=== PATIENT | female | born 1945 | race Caucasian/White ===

== ENCOUNTER 2020-09-18 05:46 | Inpatient (IN) | payer MEDICARE ==
[~2020-09-18] VITALS: Ht 157.5 cm; Wt 71.7 kg
--- NOTE | 2020-09-18 06:03 | NUR ---
RADHA 90 FROM HOME FOR C/O ABD PAIN. PT ARRIVED ON NRB MASK. WAS ASSISTED TO BED 8 ER AND WAS PLACED ON A MONITOR . A, OX4. REPORTED HAVING ABD PAIN, BLOODY STOOL AND VOMITING BLOOD FOR THE PAST FEW DAYS WHICH ALL GOT WORSE RECENTLY. PT HAS REC'F 50MCG OF F[place] IV PRINTER MACHINE BY EMS. PT WAS PLACED ON O2 AT 2LPM VIA NC. TOLERATED WELL. SATTING AT 99%. ON ONGOING MONITORING WHILE AWAITING FOR MD'S EVAL.
[2020-09-18 06:31] LABS: BASOPHILS # (AUTO) 0.1 K/uL (0.0-0.2); BASOPHILS % (AUTO) 0.3 % (0.0-2.0); EOSINOPHILS % (AUTO) 0.1 % (0.0-6.0); LYMPHOCYTES # (AUTO) 2.4 K/uL (0.8-4.8); LYMPHOCYTES % (AUTO) 7.9 % (20.0-44.0); MEAN CORPUSCULAR HGB CONC 32 g/dl (31.0-36.0); MEAN CORPUSCULAR VOLUME 112 fL (82-100); MONOCYTES # (AUTO) 2.5 K/uL (0.1-1.30); MONOCYTES % (AUTO) 8.3 % (2.0-12.0); NEUTROPHILS # (AUTO) 25.7 K/uL (1.8-8.9); NEUTROPHILS % (AUTO) 83.4 % (43.0-81.0); PLATELET COUNT (AUTO) 340 K/uL (150-450)
[2020-09-18 06:39] LABS: RED BLOOD CELL COUNT(AUTO) 1.54 MIL/uL (4.0-5.2)
[2020-09-18] MEDS ORDERED: MORPHINE SULFATE INJ 4 MG/ML DISP.SYRIN ONE (06:43)
[2020-09-18] MEDS ORDERED: FAMOTIDINE/PF INJ 20 MG/2 ML VIAL IV ONE ×2 (06:43→07:00)
[2020-09-18] MEDS ORDERED: ONDANSETRON HCL/PF 4 MG/2 ML VIAL ONE (06:43)
[2020-09-18] MEDS ORDERED: PANTOPRAZOLE 40 MG VIAL ONE ×4 (06:43→17:17)
--- NOTE | 2020-09-18 06:43 | NUR ---
wbc 30.7 hgb 5.6 hct 17
[2020-09-18 06:44] LABS: HEMATOCRIT 17 % (33-45); HEMOGLOBIN 5.6 g/dL (11.5-14.8); WHITE BLOOD COUNT (AUTO) 30.7 K/uL (4.3-11.0)
[2020-09-18] MEDS ORDERED: CEFTRIAXONE 1GM BAG (ER ONLY) 50 ML IV ONE ×2 (06:44→07:00)
--- NOTE | 2020-09-18 06:47 | NUR ---
KRISS WINTERS SPOKE TO DR. NEWMAN REGARDING PT.
[2020-09-18] MEDS ORDERED: PANTOPRAZOLE 40 MG VIAL IV ONE (07:00)
[2020-09-18] MEDS ORDERED: PANTOPRAZOLE 80 MG in IV NS 0.9% 500 ML IV PRN (07:00)
[2020-09-18] MEDS ORDERED: IV NS 0.9% 1,000 ML BAG IV ONE (07:00)
[2020-09-18] MEDS ORDERED: MORPHINE SULFATE INJ 2 MG/ML DISP.SYRIN IV ONE (07:00)
[2020-09-18] MEDS ORDERED: ONDANSETRON HCL/PF 4 MG/2 ML VIAL IV ONE (07:00)
[2020-09-18] MEDS ORDERED: LISI10TA29 PO (08:25)
--- NOTE | 2020-09-18 08:35 | NUR ---
GUILLERMO (SCHEDULING CLERK FROM [facility]) [phone] FAX [phone]
[2020-09-18 08:48] LABS: ALANINE AMINOTRANSFERASE 88 U/L (12-78); ALBUMIN 2.5 g/dL (3.4-5.0); ALKALINE PHOSPHATASE 77 U/L (46-116); ASPARTATE AMINOTRANSFERASE 54 U/L (15-37); BILIRUBIN,DIRECT 0.4 mg/dL (0.0-0.2); BILIRUBIN,TOTAL 0.7 mg/dL (0.2-1.0); CALCIUM, SERUM 8.5 mg/dL (8.5-10.1); CARBON DIOXIDE 19 mmol/L (21-32); CHLORIDE 105 mmol/L (98-107); CREATININE 1.9 mg/dL (0.6-1.3); GLUCOSE 154 mg/dL (74-106); LIPASE 314 U/L (73-393); POTASSIUM 5.4 mmol/L (3.5-5.1); SODIUM SERUM 138 mmol/L (136-145); TOTAL PROTEIN, SERUM 5.5 g/dL (6.4-8.2); UREA NITROGEN, BLOOD 67 mg/dL (7-18)
--- NOTE | 2020-09-18 09:05 | NUR ---
PER GUILLERMO FROM [facility] THE PATIENT IS OK TO STAY IN SO UNDER DR MEDINA
--- NOTE | 2020-09-18 09:10 | NUR ---
DR MEDINA FOR ADMISSION, DR NEWMAN CALLED AGAIN AND REMINDED BY DR VALENTIN TO SEE PATIENT
--- NOTE | 2020-09-18 09:16 | NUR ---
WAITING ON ANAND BED
[2020-09-18] MEDS ORDERED: ACETAMINOPHEN 325 MG TABLET ONE (09:42)
--- NOTE | 2020-09-18 09:50 | NUR ---
TYLENOL 650 MG PO GIVEN PRIOR START OF THE BLOOD TRANSFUSION FOR TEMP OF 99.8. THE ORDER OFTYLENOL 650 MG PO ONCE RECEIVED FROM DR VALENTIN, THE ORDER IS READ BACK, VERIFIED. NOTED AND CARRIED OUT.
--- NOTE | 2020-09-18 09:56 | NUR ---
BLOOD TRANSFUSION GOING. NO SIDE EFFECTS NOTED AT THIS TIME.
[2020-09-18] MEDS ORDERED: ACETAMINOPHEN 325 MG TABLET PO ONE (10:00)
[2020-09-18] MEDS ORDERED: AZITHROMYCIN 500 MG in IV D5W 250 ML IV ONE (10:00)
[2020-09-18 10:15] LABS: BAND % (MANUAL) 1 % (0.0-5.0); LYMPHOCYTES % (MANUAL) 7 % (16-48); METAMYELOCYTES % 1 % (0-0); MONOCYTES % (MANUAL) 9 % (0-11.0); MYELOCYTES % 1 % (0-0); NEUTROPHILS % (MANUAL) 81 (42-76)
[2020-09-18] MEDS ORDERED: ONDANSETRON HCL/PF 4 MG/2 ML VIAL IV PRN (11:30)
[2020-09-18] MEDS: PANTOPRAZOLE 40 MG VIAL IV SCH ×3 (11:30→17:30)
--- NOTE | 2020-09-18 12:02 | NUR ---
THE PATIENT IS TAKEN TO CT IN STABLE CONDITION.
--- NOTE | 2020-09-18 12:07 | NUR ---
SEEN BY DR MEDINA WITH AN ORDER TO ADMINISTER TOTAL OF 4 UNITS OF PRBC AND PATIENT OK TO HAVE ICE CHIPS.
--- NOTE | 2020-09-18 12:08 | NUR ---
THE PATIENT IS BACK FROM CT IN STABLE CONDITION.
[2020-09-18 12:35] LABS: HEMOGLOBIN 7.2 g/dL (11.5-14.8)
--- NOTE | 2020-09-18 13:44 | NUR ---
TEMP 99.8 DR JOSUE AWARE AND PER OK TO START THE BLOOD TRANSFUSION.
[2020-09-18] MEDS: PIPERACILLIN /TAZOBACTAM 2.25 G in IV D5W 50 ML IV SCH ×2 (13:47→18:24)
--- NOTE | 2020-09-18 14:26 | NUR ---
PROTONIX 80 MG IV INFUSING IS STOPED PER DR MEDINA.
[2020-09-18 18:21] LABS: HEMOGLOBIN 8.6 g/dL (11.5-14.8)
--- NOTE | 2020-09-18 18:45 | NUR ---
3RD UNIT OF PRBC INFUSING. NO SIDE EFFECTS NOTED.
--- NOTE | 2020-09-18 20:00 | NUR ---
TELE 111-1
--- NOTE | 2020-09-18 20:01 | NUR ---
3RD PRBC FINISHED.
--- NOTE | 2020-09-18 20:05 | NUR ---
RN NOTES RECEIVED ER ADMISSION REPORT FROM TOMY QUEZADA. ALL PERTINENT ADMISSION INFO REGARDING PT NOTED. WILL WAIT FOR PT TO BE TRANSFERRED TO UNIT AND ADDRESS NEEDS ACCORDINGLY. UNMANNED AIRCRAFT SYSTEMS ROBOTICIST MADE AWARE.
--- NOTE | 2020-09-18 20:09 | NUR ---
REPORT GIVEN TO TONA HUITRON FOR MAG.
--- NOTE | 2020-09-18 20:33 | NUR ---
TAKEN TO ASSIGNED ROOM FOR MAG VIA ACLS PROTOCOLS
[2020-09-18 22:39] VITALS: BP 144/67
[2020-09-18 23:00] VITALS: BP_SYST 105; BP_SYST 115; BP_DIAS 43; BP_DIAS 62
[2020-09-18] MEDS: MORPHINE SULFATE INJ 2 MG/ML DISP.SYRIN IV PRN (23:00)
[2020-09-18] MEDS: IV 1/2NS 1000 ML 1,000 ML IV PRN (23:06)
[2020-09-18 23:59] VITALS: BP 100/55
[2020-09-19] VITALS (7 sets, daily range): BP systolic 100–140; BP diastolic 55–71
[2020-09-19] MEDS ORDERED: PIPERACILLIN /TAZOBACTAM 2.25 G VIAL IV ONE ×2 (01:30→05:22)
[2020-09-19 03:53] LABS: BASOPHILS # (AUTO) 0.1 K/uL (0.0-0.2); BASOPHILS % (AUTO) 0.3 % (0.0-2.0); EOSINOPHILS % (AUTO) 0.2 % (0.0-6.0); HEMATOCRIT 36 % (33-45); HEMOGLOBIN 11.7 g/dL (11.5-14.8); LYMPHOCYTES # (AUTO) 1.7 K/uL (0.8-4.8); LYMPHOCYTES % (AUTO) 6.8 % (20.0-44.0); MEAN CORPUSCULAR HGB CONC 33 g/dl (31.0-36.0); MEAN CORPUSCULAR VOLUME 94 fL (82-100); MONOCYTES # (AUTO) 0.8 K/uL (0.1-1.30); MONOCYTES % (AUTO) 3.1 % (2.0-12.0); NEUTROPHILS # (AUTO) 22.1 K/uL (1.8-8.9); NEUTROPHILS % (AUTO) 89.6 % (43.0-81.0); PLATELET COUNT (AUTO) 209 K/uL (150-450); WHITE BLOOD COUNT (AUTO) 24.7 K/uL (4.3-11.0)
[2020-09-19 04:10] LABS: ALANINE AMINOTRANSFERASE 63 U/L (12-78); ALBUMIN 2.1 g/dL (3.4-5.0); ALKALINE PHOSPHATASE 69 U/L (46-116); ASPARTATE AMINOTRANSFERASE 37 U/L (15-37); BILIRUBIN,TOTAL 1.4 mg/dL (0.2-1.0); CALCIUM, SERUM 7.6 mg/dL (8.5-10.1); CARBON DIOXIDE 20 mmol/L (21-32); CHLORIDE 109 mmol/L (98-107); CREATININE 1.6 mg/dL (0.6-1.3); GLUCOSE 138 mg/dL (74-106); POTASSIUM 4.7 mmol/L (3.5-5.1); SODIUM SERUM 141 mmol/L (136-145); TOTAL PROTEIN, SERUM 5.1 g/dL (6.4-8.2); UREA NITROGEN, BLOOD 56 mg/dL (7-18)
[2020-09-19 04:33] LABS: BAND % (MANUAL) 29 % (0.0-5.0); BASOPHILS % (MANUAL) 0 % (0.0-2.0); EOSINOPHILS % (MANUAL) 0 % (0-4); LYMPHOCYTES % (MANUAL) 6 % (16-48); MONOCYTES % (MANUAL) 3 % (0-11.0); NEUTROPHILS % (MANUAL) 62 (42-76)
[2020-09-19] MEDS: PIPERACILLIN /TAZOBACTAM 2.25 G in IV D5W 50 ML IV SCH ×5 (06:09→23:44)
[2020-09-19] MEDS: MORPHINE SULFATE INJ 2 MG/ML DISP.SYRIN IV PRN ×2 (06:10→12:54)
--- NOTE | 2020-09-19 06:15 | NUR ---
RN notes Admitted an 78 year old female from ER via stretcher in stable condition with diagnosis of GI bleed. No distress or shortness of breath. Breathing even and unlabored. On room air well tolerated. Complaint of abdominal pain 8/10, administered morphine 2mg x 2, with relief. Alert and oriented. Able to communicate needs verbally. Kept clean and dry. Will endorse to next shift for continuity of care.
--- NOTE | 2020-09-19 07:15 | NUR ---
RN OPENING NOTE Received patient awake in bed appears calm and relaxed. No signs of distress. On room air tolerating well. Patient is AO x4 tele reading SR. Patient is npo, Has LAC #20 and LFA #20 running 1/2 NS @ 100ml/hr Safety measures maintained. Call light within reach. Will cont to monitor.
[2020-09-19] MEDS: PANTOPRAZOLE 40 MG VIAL IV SCH ×2 (08:44→16:19)
--- NOTE | 2020-09-19 09:15 | NUR ---
RN NOTE Received report from TOMY Andrade.
--- NOTE | 2020-09-19 10:00 | NUR ---
RN NOTE Patient was brought via bed. A/O X4. on room air, no sob noted. in no apparent distress. iv access on L FA #20, 1/2 NS running @100 ml/hr, intact and patent. patient is currently on npo status. Safety measures maintained. Bed in lowest position, brakes locked. Side rails up x2. Call light within reach. Will continue plan of care.
--- NOTE | 2020-09-19 10:40 | NUR ---
Patient transferred to room 309 gave report to Darion.
[2020-09-19] MEDS: IV 1/2NS 1000 ML 1,000 ML IV PRN (11:19)
[2020-09-19 11:45] LABS: HEMOGLOBIN 11.6 g/dL (11.5-14.8)
[2020-09-19] MEDS ORDERED: ANESTHESIA TRAY IN PYXIS 1 EA TRAY MC ONE (14:53)
--- NOTE | 2020-09-19 15:10 | NUR ---
RN NOTE Patient was brought down to Sx for the planned EGD.
--- NOTE | 2020-09-19 16:30 | NUR ---
RN NOTE DR. NEWMAN ORDERED REGULAR DIET FOR THE PT. ORDER CARRIED OUT.
--- NOTE | 2020-09-19 16:49 | NUR ---
RN NOTE DR. MEDINA PUT AN ORDER FOR MRCP WITHOUT CONTRAST. PUT THE PT ON NPO POST MIDNIGHT. HEALTH TEACHING GIVEN. PT VERBALIZED UNDERSTANDING.
--- NOTE | 2020-09-19 17:09 | NUR ---
RN NOTE DR MEDINA CHANGED HIS ORDER TO NPO EXCEPT MEDS. ORDER CARRIED OUT.
--- NOTE | 2020-09-19 18:08 | NUR ---
RN NOTE Patient resting quietly. A/O X4. on room air, no sob noted. in no apparent distress. iv access on L FA #20, L AC #20 with 1/2 NS running @100 ml/hr, intact and patent. all needs have been met attended. Consent for the MRCP, signed by the patient. Safety measures maintained. Bed in lowest position, brakes locked. Side rails up x2. Kept call light within reach. Will endorse continuity of care to oncoming shift.
[2020-09-19 19:00] LABS: HEMOGLOBIN 11.2 g/dL (11.5-14.8)
--- NOTE | 2020-09-19 19:42 | NUR ---
HAND SHOE CUTTER OPENING NOTE RECEIVED PT AWAKE IN BED. A/O X4. PT STABLE ON ROOM AIR. NO SOB OR S/S OF RESPIRATORY DISTRESS NOTED. PT ON EXTERNAL COAL DUMPING EQUIPMENT OPERATOR READING ST AT 115 BPM. PT HAS NO C/O PAIN OR DISCOMFORT AT THIS TIME. IV ACCESS IN LEFT FA #20, INFUSING 1/2 NS AT 100 ML/HR, INTACT AND PATENT. SAFETY MEASURES MAINTAINED. BED IN LOWEST LOCKED POSITION, HOB ELEVATED, SIDE RAILS UP X2. CALL LIGHT AND TABLE WITHIN REACH. WILL CONTINUE WITH PLAN OF CARE.
[2020-09-20 02:09] LABS: HEMOGLOBIN 10.1 g/dL (11.5-14.8)
[2020-09-20] MEDS: MORPHINE SULFATE INJ 2 MG/ML DISP.SYRIN IV PRN ×4 (04:55→20:13)
--- NOTE | 2020-09-20 04:55 | NUR ---
RN PAIN PT C/O SHARP LOWER ABDOMINAL PAIN, RATED 10/10 ON PAIN SCALE. VSS. PER PT REQUEST, ADMINISTERED MORPHINE SULFATE 2 MG IV Q4H PRN FOR PAIN. WILL REASSESS PT IN 30 MINS.
[2020-09-20] MEDS: PIPERACILLIN /TAZOBACTAM 2.25 G in IV D5W 50 ML IV SCH (05:01)
[2020-09-20 06:06] LABS: EOSINOPHILS % (AUTO) 0.2 % (0.0-6.0); HEMATOCRIT 31 % (33-45); HEMOGLOBIN 10.4 g/dL (11.5-14.8); LYMPHOCYTES # (AUTO) 1.1 K/uL (0.8-4.8); LYMPHOCYTES % (AUTO) 7.2 % (20.0-44.0); MEAN CORPUSCULAR HGB CONC 33 g/dl (31.0-36.0); MEAN CORPUSCULAR VOLUME 93 fL (82-100); MONOCYTES # (AUTO) 0.5 K/uL (0.1-1.30); MONOCYTES % (AUTO) 2.9 % (2.0-12.0); NEUTROPHILS # (AUTO) 14.2 K/uL (1.8-8.9); NEUTROPHILS % (AUTO) 89.7 % (43.0-81.0); PLATELET COUNT (AUTO) 211 K/uL (150-450); RED BLOOD CELL COUNT(AUTO) 3.33 MIL/uL (4.0-5.2); WHITE BLOOD COUNT (AUTO) 15.9 K/uL (4.3-11.0)
[2020-09-20 06:19] LABS: HEMOGLOBIN 10.4 g/dL (11.5-14.8)
[2020-09-20 06:32] LABS: ALBUMIN 1.7 g/dL (3.4-5.0); BILIRUBIN,TOTAL 0.8 mg/dL (0.2-1.0); CALCIUM, SERUM 7.7 mg/dL (8.5-10.1); CREATININE 1.1 mg/dL (0.6-1.3); POTASSIUM 4.1 mmol/L (3.5-5.1); TOTAL PROTEIN, SERUM 5.1 g/dL (6.4-8.2)
--- NOTE | 2020-09-20 06:38 | NUR ---
TESTBOARD OPERATOR CLOSING NOTE PT IS IN BED WITH EYES CLOSED, AROUSABLE TO STIMULATION. A/O X4. PT STABLE ON ROOM AIR. NO SOB OR S/S OF RESPIRATORY DISTRESS NOTED. EXTERNAL TOP EXECUTIVE READING ST AT 101 BPM. PT HAS NO C/O PAIN OR DISCOMFORT AT THIS TIME. PT KEPT NPO SINCE MIDNIGHT DUE TO MRCP WITHOUT CONTRAST ON 09/20/20. IV ACCESS IS INTACT, PATENT, AND FLUSHING WELL. ALL NEEDS HAVE BEEN MET. PAIN MANAGEMENT ADMINISTERED PER ORDER. SAFETY PRECAUTIONS MAINTAINED AT ALL TIMES. BED IN LOWEST LOCKED POSITION, HOB ELEVATED, SIDE RAILS UP X2. CALL LIGHT AND TABLE WITHIN REACH. WILL ENDORSE TO ONCOMING NURSE FOR MAG.
--- NOTE | 2020-09-20 07:05 | NUR ---
RN Opening note Received patient in bed, easily awakened. a/o x4. on room air, no sob noted. in no apparent distress. iv access on L FA #20, with 1/2 NS running @100 ml/hr, intact and patent. pt is currently on npo except meds. Safety measures maintained. Bed in lowest position, brakes locked. Side rails up x2. Kept call light within reach. Will continue plan of care.
[2020-09-20] MEDS: PANTOPRAZOLE 40 MG VIAL IV SCH ×2 (08:05→17:11)
[2020-09-20 08:16] VITALS: BP 130/82
[2020-09-20] MEDS ORDERED: HYDROCODONE/APAP 5/325MG TABLET PO PRN (08:30)
[2020-09-20] MEDS: IV 1/2NS 1000 ML 1,000 ML IV PRN (09:16)
[2020-09-20] MEDS: METRONIDAZOLE 500MG/ NS 100ML 500 MG in PREMIX 1 EA IV SCH ×3 (09:17→20:32)
[2020-09-20] MEDS: LEVOFLOXACIN 500 MG /D5W 100ML 500 MG in PREMIX 1 EA IV SCH (10:29)
[2020-09-20 13:09] LABS: HEMOGLOBIN 10.8 g/dL (11.5-14.8)
[2020-09-20 15:40] LABS: OCCULT BLOOD STOOL POSITIVE (NEGATIVE)
[2020-09-20 15:40] LABS: BILIRUBIN,URINE NEGATIVE (NEGATIVE); COLOR,URINE YELLOW (YELLOW); LEUKOCYTE ESTERASE ,URINE TRACE (NEGATIVE); NITRITE, URINE NEGATIVE (NEGATIVE); PROTEIN,URINE 100 mg/dl (NEGATIVE); UGLUCOSE NEGATIVE (NEGATIVE); UROBILINOGEN,URINE 0.2 EU/dL (0.2)
[2020-09-20 16:29] LABS: BACTERIA,URINE 1+ /HPF (None Seen)
[2020-09-20 16:31] VITALS: BP 140/70
--- NOTE | 2020-09-20 18:15 | NUR ---
RN Closing note Patient in bed, easily awakened. a/o x4. on room air, no sob noted. in no apparent distress. iv access on L FA #20, with 1/2 NS running @100 ml/hr, intact and patent. Patient is back on clear liquid diet as ordered by Dr. Vargas. All needs have been met and attended. Safety measures maintained. Bed in lowest position, brakes locked. Side rails up x2. Kept call light within reach. Will endorse continuity of care to oncoming shift.
[2020-09-20 18:20] LABS: HEMOGLOBIN 10.2 g/dL (11.5-14.8)
--- NOTE | 2020-09-20 19:37 | NUR ---
FISH CONSERVATIONIST OPENING NOTE RECEIVED PT AWAKE IN BED. A/O X4. PT STABLE ON ROOM AIR. NO SOB OR S/S OF RESPIRATORY DISTRESS NOTED. PT ON EXTERNAL HOSPITAL CHAPLAIN READING SR AT 95 BPM. PT HAS NO C/O PAIN OR DISCOMFORT AT THIS TIME. IV ACCESS IN LEFT FA #20, INFUSING 1/2 NS AT 100 ML/HR, INTACT AND PATENT. SAFETY MEASURES MAINTAINED. BED IN LOWEST LOCKED POSITION, HOB ELEVATED, SIDE RAILS UP X2. CALL LIGHT AND TABLE WITHIN REACH. WILL CONTINUE WITH PLAN OF CARE.
[2020-09-20 20:00] VITALS: BP 130/64
--- NOTE | 2020-09-20 20:13 | NUR ---
RN PAIN PT C/O SHARP LOWER ABDOMINAL PAIN, RATED 8/10 ON PAIN SCALE. VSS. PER PT REQUEST, ADMINISTERED MORPHINE SULFATE 2 MG IV Q4H PRN FOR PAIN. WILL REASSESS PT IN 30 MINS.
[2020-09-21] VITALS: BP 146/75
[2020-09-21] MEDS: MORPHINE SULFATE INJ 2 MG/ML DISP.SYRIN IV PRN ×2 (00:40→12:27)
--- NOTE | 2020-09-21 00:40 | NUR ---
RN PAIN PT C/O SHARP LOWER ABDOMINAL PAIN, RATED 9/10 ON PAIN SCALE. VSS. PER PT REQUEST, ADMINISTERED MORPHINE SULFATE 2 MG IV Q4H PRN FOR PAIN. WILL REASSESS PT IN 30 MINS.
[2020-09-21 04:00] VITALS: BP 149/74
[2020-09-21] MEDS: METRONIDAZOLE 500MG/ NS 100ML 500 MG in PREMIX 1 EA IV SCH ×2 (04:17→12:19)
[2020-09-21 06:22] LABS: BASOPHILS # (AUTO) 0.1 K/uL (0.0-0.2); BASOPHILS % (AUTO) 0.7 % (0.0-2.0); EOSINOPHILS % (AUTO) 0.7 % (0.0-6.0); HEMATOCRIT 31 % (33-45); HEMOGLOBIN 10.5 g/dL (11.5-14.8); LYMPHOCYTES # (AUTO) 1.1 K/uL (0.8-4.8); LYMPHOCYTES % (AUTO) 8.2 % (20.0-44.0); MEAN CORPUSCULAR HGB CONC 34 g/dl (31.0-36.0); MEAN CORPUSCULAR VOLUME 93 fL (82-100); MONOCYTES # (AUTO) 0.7 K/uL (0.1-1.30); MONOCYTES % (AUTO) 5.6 % (2.0-12.0); NEUTROPHILS # (AUTO) 10.8 K/uL (1.8-8.9); NEUTROPHILS % (AUTO) 84.8 % (43.0-81.0); PLATELET COUNT (AUTO) 234 K/uL (150-450); RED BLOOD CELL COUNT(AUTO) 3.36 MIL/uL (4.0-5.2); WHITE BLOOD COUNT (AUTO) 12.8 K/uL (4.3-11.0)
--- NOTE | 2020-09-21 06:50 | NUR ---
FIREARMS INSTRUCTOR CLOSING NOTE PT IS IN BED WITH EYES CLOSED, AROUSABLE TO STIMULATION. A/O X4. PT STABLE ON ROOM AIR. NO SOB OR S/S OF RESPIRATORY DISTRESS NOTED. EXTERNAL EMR ANALYST READING SR AT 93 BPM. PT HAS NO C/O PAIN OR DISCOMFORT AT THIS TIME. IV ACCESS IS INTACT, PATENT, AND FLUSHING WELL. ALL NEEDS HAVE BEEN MET. PAIN MANAGEMENT ADMINISTERED PER ORDER. SAFETY PRECAUTIONS MAINTAINED AT ALL TIMES. BED IN LOWEST LOCKED POSITION, HOB ELEVATED, SIDE RAILS UP X2. CALL LIGHT AND TABLE WITHIN REACH. WILL ENDORSE TO ONCOMING NURSE FOR MAG.
[2020-09-21 06:54] LABS: ALBUMIN 1.7 g/dL (3.4-5.0); BILIRUBIN,TOTAL 0.6 mg/dL (0.2-1.0); CALCIUM, SERUM 7.4 mg/dL (8.5-10.1); CREATININE 0.9 mg/dL (0.6-1.3); POTASSIUM 4.1 mmol/L (3.5-5.1); TOTAL PROTEIN, SERUM 5.1 g/dL (6.4-8.2)
--- NOTE | 2020-09-21 07:34 | NUR ---
SENIOR DOT NET DEVELOPER OPENING NOTES RECEIVED PT AWAKE IN BED IN NO ACUTE SIGNS OF DISTRESS. A/O X4. ABLE TO MAKE NEEDS KNOWN, DENIES PAIN OR ANY DISCOMFORTS AT THIS TIME. ON ROOM AIR, BREATHING EVEN AND UNLABORED. ON EXTERNAL ADVISORY APPLICATION DEVELOPER WITH CURRENT READING ST WITH HR OF 105, NO C/O CARDIAC DISTRESS VOICED AT THIS TIME. IV ACCESS IN LFA #22 INTACT AND PATENT, IVF OF 1/2 NS AT 100 ML/HR INFUSING WELL. SAFETY MEASURES IN PLACE: BED IN LOWEST LOCKED POSITION, HOB ELEVATED, SIDE RAILS UP X2. CALL LIGHT AND BEDSIDE TABLE WITHIN EASY REACH OF PT. WILL CONTINUE PT ACCORDINGLY.
[2020-09-21 08:27] VITALS: BP 134/80
[2020-09-21] MEDS ORDERED: FERR325T23 PO (08:41)
[2020-09-21] MEDS ORDERED: PANT40TA2 PO (08:41)
[2020-09-21] MEDS ORDERED: LEVO250T59 PO (08:41)
[2020-09-21] MEDS: PANTOPRAZOLE 40 MG VIAL IV SCH ×2 (08:53→16:22)
[2020-09-21] MEDS: LEVOFLOXACIN 500 MG /D5W 100ML 500 MG in PREMIX 1 EA IV SCH (08:54)
[2020-09-21] MEDS ORDERED: LOPERAMIDE HCL (2 MG CAP) 2 MG CAPSULE PO ONE (09:00)
[2020-09-21 09:19] LABS: BAND % (MANUAL) 4 % (0.0-5.0); LYMPHOCYTES % (MANUAL) 4 % (16-48); METAMYELOCYTES % 1 % (0-0); MONOCYTES % (MANUAL) 8 % (0-11.0); MYELOCYTES % 1 % (0-0); NEUTROPHILS % (MANUAL) 82 (42-76)
--- NOTE | 2020-09-21 12:30 | NUR ---
RN NOTES PT C/O OF SHARP STABBING LEFT LOWER ABDOMINAL PAIN. 8/10 SCALE. PRN MORPHINE 2MG IVP ADMINISTERED AT 1227. WILL CONTINUE TO MONITOR AND REASSESS PT.
[2020-09-21 16:44] VITALS: BP 135/80
--- NOTE | 2020-09-21 17:11 | NUR ---
RN DISCHARGED NOTES PATIENT DISCHARGED HOME IN STABLE CONDITION. A/O X4. ABLE TO MAKE NEEDS KNOWN AND AMBULATORY. V/S TAKEN, RECORDED AND STABLE. NO SKIN ISSUES NOTED. ALL BELONGINGS ACCOUNTED FOR AND SIGNED FORM. IV ACCESS ON LFA G#22 REMOVED WITH NO ACTIVE BLEEDING NOTED, DRY PRESSURE DRESSING APPLIED AT SITE. NAME ARMBAND REMOVED. HEALTH TEACHINGS/DISCHARGED INSTRUCTIONS GIVEN TO PT AND VERBALIZED UNDERSTANDING. NEW PRESCRIPTIONS HANDED TO PT. PT LEFT UNIT VIA WHEELCHAIR AT 1700 ACCOMPANIED BY ME AND PT'S BOYFRIEND ADITI WHO WILL TAKE PT'S HOME. MD AND CHARGE NURSE AWARE OF DISCHARGE
== END 2020-09-21 17:00 | disposition home or self-care (01) | DRG 871 ==
LOC: ER 05:49 → TRANSITION 10:37 → EDBD 10:37 → TELE-TD 20:12 → TELE1 21:21 → TELE 09-19 09:52
PROVIDERS: ADMIT Internal Medicine; ATTEND Internal Medicine
PROC: 30233N1 Transfusion of Nonautologous Red Blood Cells into Peripheral Vein, Percutaneous Approach (ICD-10-PCS; 2020-09-18)
PROC: 0DB68ZX Excision of Stomach, Via Natural or Artificial Opening Endoscopic, Diagnostic (ICD-10-PCS; principal; 2020-09-19)
DX: A41.9 Sepsis, unspecified organism (principal); N17.0 Acute kidney failure with tubular necrosis; D62 Acute posthemorrhagic anemia; N39.0 Urinary tract infection, site not specified; K25.9 Gastric ulcer, unspecified as acute or chronic, without hemorrhage or perforation; K29.70 Gastritis, unspecified, without bleeding; Z20.822 Contact with and (suspected) exposure to COVID-19; I10 Essential (primary) hypertension; Z79.899 Other long term (current) drug therapy; Z98.890 Other specified postprocedural states; K52.9 Noninfective gastroenteritis and colitis, unspecified; E87.5 Hyperkalemia; K44.9 Diaphragmatic hernia without obstruction or gangrene; K83.8 Other specified diseases of biliary tract; R74.01 Elevation of levels of liver transaminase levels; K57.90 Diverticulosis of intestine, part unspecified, without perforation or abscess without bleeding; K80.50 Calculus of bile duct without cholangitis or cholecystitis without obstruction; I70.0 Atherosclerosis of aorta
CPT/HCPCS: 36415; 71045-TC; 74181-TC; 76770-TC; 80048-TC; 80053-TC; 80076-TC; 81001; 82272-TC; 83690-TC; 84484-TC; 85025-TC; 85027-TC; 85730-TC; 86850-TC; 87045-TC; 87081-TC; 88305-TC; 88313-TC; 88342; 89055; A4216; C9113; C9803; G0378; J0456; J0696; J1956; J2270; J2405; J2543; J2704; J3490; J7030; J7040; J7050; J7060; P9016